=== PATIENT | female | born 1990 | race Caucasian/White ===

== ENCOUNTER 2022-05-27 21:08 | Emergency (ER) | payer OTHER, MEDICARE, SELFPAY ==
[2022-05-27 21:12] VITALS: BP 146/67; RESP 16; TEMP 36.7; BMI 26.6
[2022-05-27 22:28] VITALS: BP 117/86; PULSE 111; RESP 16; O2SAT 94
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
== END 2022-05-27 22:58 | disposition home or self-care (01) ==
PROVIDERS: Emergency Provider Student in an Organized Health Care Education/Training Program; Visit Provider Student in an Organized Health Care Education/Training Program
DX: Z04.1 Encounter for examination and observation following transport accident (principal); F43.10 Post-traumatic stress disorder, unspecified; F17.210 Nicotine dependence, cigarettes, uncomplicated
CPT/HCPCS: 99284